=== PATIENT | female | born 1980 | race Two or more races ===

== ENCOUNTER → 2018-10-14 | Day surgery (SDC) | payer OTHER ==
[~2018-10-14] MED LIST: CARAFATE1 GM/10 ML PO; NEXIUM 24HR20 MG PO
== END | disposition home or self-care (01) ==
LOC: AMB-ENDOS 10-11 15:00 → CIR.AMB 10-11 15:00 → ADM 10-11 15:00 → AMB-ENDOS 10:13
DX: D13.1 Benign neoplasm of stomach (principal)

== ENCOUNTER 2019-03-03 10:53 | Day surgery (SDC) | payer OTHER | END 2019-03-03 15:10 | disposition home or self-care (01) | LOC: AMB-ENDOS 10:53 | DX: D13.1 Benign neoplasm of stomach (principal) ==

== ENCOUNTER 2020-05-16 08:07 | Day surgery (SDC) | payer OTHER ==
[~2020-05-16 08:07] MED LIST changes: +ATORVASTATIN CA10 MG PO; +D3-200050 MCG PO; +LEVO-T50 MCG PO; +NEURIN PO
[2020-05-16] MEDS ORDERED: POLY119PG PO (14:35)
[2020-05-16] MEDS ORDERED: PERCOCET 5-3251 EACH PO (14:35)
== END 2020-05-16 17:35 | disposition home or self-care (01) ==
LOC: CIR.AMB 08:07
PROVIDERS: ATTEND Surgery
DX: K80.10 Calculus of gallbladder with chronic cholecystitis without obstruction (principal); Z20.828 Contact with and (suspected) exposure to other viral communicable diseases